=== PATIENT | male | born 2005 | race Caucasian/White ===

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

== ENCOUNTER 2024-08-08 16:19 | Emergency (ER) | payer MEDICAID ==
[~2024-08-08] VITALS: Ht 172.7 cm; Wt 75.5 kg
[~2024-08-08 16:19] MED LIST changes: +FAMO20TA44 PO; +OMEP20CA15 PO; +ONDA4TAB6 PO; +SUCR1TAB34 PO
[2024-08-08 16:45] VITALS: BP 150/84; PULSE 99; RESP 18; TEMP 97.6; O2SAT 98
[2024-08-08] MEDS ORDERED: AMOX-117 PO (17:22)
[2024-08-08] MEDS: TETanus/Pertussis (Acell)/Diphther VAC/PF (Tdap-Adult) 0.5ml syringe IMVAC ONE (17:37)
== END 2024-08-08 18:00 | disposition home or self-care (01) ==
LOC: ER 16:20
DX: S61.251A Open bite of left index finger without damage to nail, initial encounter (principal); W54.0XXA Bitten by dog, initial encounter; Y93.89 Activity, other specified; Y92.89 Other specified places as the place of occurrence of the external cause; Y99.8 Other external cause status
CPT/HCPCS: 90471; 90715; 99283